=== PATIENT | female | born 1945 | race Caucasian/White ===

== ENCOUNTER 2020-07-23 07:37 | Outpatient (CLI) | payer MEDICARE | END 2020-07-23 07:38 | disposition home or self-care (01) | LOC: CSHCT 07:37 | PROVIDERS: ATTEND Psychiatry & Neurology Neurology | DX: R42 Dizziness and giddiness (principal) | CPT/HCPCS: 70470; 82565 ==

== ENCOUNTER 2021-02-14 17:57 | Inpatient (IN) | payer MEDICARE ==
[2021-02-14 18:40] LABS: #Eosinphils 0.1 10x3/uL (0.0-0.5); #Monocytes 0.8 10x3/uL (0.0-1.1); #Neutrophils 5.9 10x3/uL (1.5-8.4); %Basophils 0.3 % (0.0-2.0); %Eosinophils 1.2 % (0.0-6.0); %Monocytes 10.6 % (0.0-10.0); %Neutrophils 75.9 % (40.0-75.0); Hemoglobin 12.2 g/dL (12.0-15.5); Mean Corpuscular HGB CONC 35.3 g/dL (32.0-36.0); Mean Corpuscular Hemoglobin 33.2 pg (27.0-33.0); Mean Corpuscular Volume 94.3 fl (81.6-98.3); Platelet Count 157 10x3/uL (150-450); RBC Distribution Width 15.9 % (11.5-14.5); Red Blood Cell (RBC) Count 3.67 10x6/uL (3.90-5.03); White Blood Cell (WBC) Count 7.8 10x3/uL (3.5-10.5)
[2021-02-14 18:47] LABS: Calcium 9.2 mg/dL (7.8-10.44); Chloride 88 mmol/L (98-107); Potassium 6.2 mmol/L (3.5-5.1)
[2021-02-14 19:04] LABS: ALT (SGPT) 32 U/L (8-55); AST (SGOT) 37 U/L (5-34); Albumin 4.4 g/dL (3.4-4.8); Alkaline Phosphatase 51 U/L (40-110); Anion Gap 16 mmol/L (10-20); BUN (Urea Nitrogen) 17 mg/dL (9.8-20.1); Bilirubin, Total 1.2 mg/dL (0.2-1.2); Calc. Creatinine Clearance 0 mL/min (70-130); Carbon Dioxide 17 mmol/L (23-31); Globulin 2.7 g/dL (2.4-3.5); Glucose 115 mg/dL (83-110); Protein, Total 7.1 g/dL (5.8-8.1)
[2021-02-14 19:09] LABS: Sodium 115 mmol/L (136-145)
[2021-02-14] MEDS ORDERED: Calcium Chloride 1 GM/10 ML Abboject SYRINGE ONE (19:23)
[2021-02-14] MEDS ORDERED: Insulin Regular 300 UNITS/3 ML VIAL ONE (19:24)
[2021-02-14] MEDS ORDERED: Dextrose 50% Abboject 50 ML SYRINGE ONE (19:24)
[2021-02-14] MEDS ORDERED: Sodium Chloride 3% 100 ML IVPB SCH (20:00)
[2021-02-14 21:32] LABS: SARS-CoV-2 NAA Rapid Test Not Detected (NotDetected)
[2021-02-14] MEDS: Sodium Bicarbonate Tab 325 MG TAB PO SCH (23:22)
[2021-02-15 01:52] LABS: Anion Gap 13 mmol/L (10-20); BUN (Urea Nitrogen) 15 mg/dL (9.8-20.1); Calc. Creatinine Clearance 44 mL/min (70-130); Calcium 9.6 mg/dL (7.8-10.44); Carbon Dioxide 19 mmol/L (23-31); Chloride 89 mmol/L (98-107); Glucose 126 mg/dL (83-110); Potassium 5.1 mmol/L (3.5-5.1)
[2021-02-15 02:07] LABS: Sodium 116 mmol/L (136-145)
[2021-02-15] MEDS ORDERED: Sodium Chloride 3% 100 ML IVPB SCH ×2 (02:30→19:45)
[2021-02-15 04:18] LABS: #Eosinphils 0.1 10x3/uL (0.0-0.5); #Neutrophils 7.5 10x3/uL (1.5-8.4); %Basophils 0.1 % (0.0-2.0); %Eosinophils 0.8 % (0.0-6.0); %Lymphocytes 7.4 % (18.0-47.0); %Monocytes 10.4 % (0.0-10.0); %Neutrophils 79.4 % (40.0-75.0); Hemoglobin 11.5 g/dL (12.0-15.5); Mean Corpuscular HGB CONC 36.1 g/dL (32.0-36.0); Mean Corpuscular Hemoglobin 33.4 pg (27.0-33.0); Mean Corpuscular Volume 92.7 fl (81.6-98.3); Mean Platelet Volume 8.8 fl (7.4-10.4); Platelet Count 143 10x3/uL (150-450); RBC Distribution Width 15.9 % (11.5-14.5); Red Blood Cell (RBC) Count 3.44 10x6/uL (3.90-5.03); White Blood Cell (WBC) Count 9.5 10x3/uL (3.5-10.5)
[2021-02-15 04:25] LABS: Anion Gap 12 mmol/L (10-20); Calc. Creatinine Clearance 46 mL/min (70-130); Carbon Dioxide 19 mmol/L (23-31); Chloride 93 mmol/L (98-107); Glucose 119 mg/dL (83-110); Potassium 5.2 mmol/L (3.5-5.1); Sodium 120 mmol/L (136-145)
[2021-02-15 04:38] LABS: BUN (Urea Nitrogen) 15 mg/dL (9.8-20.1); Magnesium 1.8 mg/dL (1.6-2.6)
[2021-02-15] MEDS ORDERED: Sodium Chloride 3% 100 ML IVPB ONE (04:45)
[2021-02-15] MEDS: Acetaminophen/Codeine 30-300mg Tablet PO SCH ×4 (06:36→18:24)
[2021-02-15] MEDS ORDERED: FLU VACC QS2021-22(65YR UP)/PF 240 MCG/0.7 ML SYRINGE IM ONE (09:00)
[2021-02-15 09:06] LABS: Anion Gap 16 mmol/L (10-20); BUN (Urea Nitrogen) 13 mg/dL (9.8-20.1); Calc. Creatinine Clearance 52 mL/min (70-130); Calcium 8.8 mg/dL (7.8-10.44); Carbon Dioxide 16 mmol/L (23-31); Chloride 94 mmol/L (98-107); Glucose 102 mg/dL (83-110); Potassium 5.3 mmol/L (3.5-5.1); Sodium 121 mmol/L (136-145)
[2021-02-15] MEDS: Apixaban 5 MG TAB PO SCH ×2 (09:19→21:52)
[2021-02-15] MEDS: Azelastine 137 MCG/Spray 30 ML NS SCH ×2 (09:19→21:53)
[2021-02-15] MEDS: Amiodarone 200 MG TAB PO SCH ×4 (09:19→21:52)
[2021-02-15] MEDS: Ascorbic Acid 500 mg Chewable Tablet PO SCH ×2 (09:19→21:52)
[2021-02-15] MEDS: Loratadine 10 MG TAB PO SCH (09:20)
[2021-02-15] MEDS: Fish Oil 1,000 MG CAP PO SCH ×3 (09:20→21:53)
[2021-02-15] MEDS: Sodium Bicarbonate Tab 325 MG TAB PO SCH ×3 (09:21→21:54)
[2021-02-15] MEDS: Magnesium Oxide 400 MG TAB PO SCH (09:22)
[2021-02-15] MEDS: LOKELMA 10 GM PACKET PO SCH ×2 (11:52→17:22)
[2021-02-15 13:50] LABS: Albumin 3.9 g/dL (3.4-4.8); Anion Gap 13 mmol/L (10-20); BUN (Urea Nitrogen) 15 mg/dL (9.8-20.1); Calc. Creatinine Clearance 43 mL/min (70-130); Calcium 8.7 mg/dL (7.8-10.44); Carbon Dioxide 21 mmol/L (23-31); Chloride 89 mmol/L (98-107); Glucose 124 mg/dL (83-110); Phosphorus 3.9 mg/dL (2.3-4.7); Potassium 4.9 mmol/L (3.5-5.1)
[2021-02-15 13:53] LABS: Sodium 118 mmol/L (136-145)
[2021-02-15] MEDS ORDERED: Sodium Chloride 1 GM TAB PO SCH (19:15)
[2021-02-15] MEDS: LACTINEX 1 TAB PO SCH (21:52)
[2021-02-15] MEDS: Sodium Chloride 1 GM TAB PO SCH (21:54)
[2021-02-15] MEDS: Polyethylene Glycol 3350 17 GM Packet PO PRN (21:55)
[2021-02-15 22:29] LABS: Anion Gap 13 mmol/L (10-20); BUN (Urea Nitrogen) 15 mg/dL (9.8-20.1); Calc. Creatinine Clearance 47 mL/min (70-130); Calcium 8.5 mg/dL (7.8-10.44); Carbon Dioxide 21 mmol/L (23-31); Chloride 93 mmol/L (98-107); Glucose 101 mg/dL (83-110); Potassium 4.8 mmol/L (3.5-5.1); Sodium 122 mmol/L (136-145)
[2021-02-16 04:30] LABS: Anion Gap 14 mmol/L (10-20); BUN (Urea Nitrogen) 14 mg/dL (9.8-20.1); Calc. Creatinine Clearance 53 mL/min (70-130); Calcium 8.3 mg/dL (7.8-10.44); Carbon Dioxide 20 mmol/L (23-31); Chloride 93 mmol/L (98-107); Glucose 93 mg/dL (83-110); Potassium 4.7 mmol/L (3.5-5.1); Sodium 122 mmol/L (136-145)
[2021-02-16] MEDS: Apixaban 5 MG TAB PO SCH ×2 (08:21→22:17)
[2021-02-16] MEDS: Loratadine 10 MG TAB PO SCH (08:21)
[2021-02-16] MEDS: Polyethylene Glycol 3350 17 GM Packet PO PRN (08:21)
[2021-02-16] MEDS: Magnesium Oxide 400 MG TAB PO SCH (08:22)
[2021-02-16] MEDS: Sodium Bicarbonate Tab 325 MG TAB PO SCH ×3 (08:22→22:17)
[2021-02-16] MEDS: Amiodarone 200 MG TAB PO SCH ×2 (08:22→22:16)
[2021-02-16] MEDS: Ascorbic Acid 500 mg Chewable Tablet PO SCH ×2 (08:23→22:17)
[2021-02-16] MEDS: Fish Oil 1,000 MG CAP PO SCH ×2 (08:32→22:17)
[2021-02-16] MEDS: Sodium Chloride 1 GM TAB PO SCH ×3 (08:48→22:17)
[2021-02-16] MEDS: LACTINEX 1 TAB PO SCH ×2 (08:48→22:16)
[2021-02-16] MEDS: Azelastine 137 MCG/Spray 30 ML NS SCH ×2 (08:49→22:18)
[2021-02-16 11:23] LABS: Anion Gap 15 mmol/L (10-20); BUN (Urea Nitrogen) 16 mg/dL (9.8-20.1); Calc. Creatinine Clearance 46 mL/min (70-130); Calcium 7.9 mg/dL (7.8-10.44); Carbon Dioxide 19 mmol/L (23-31); Chloride 92 mmol/L (98-107); Glucose 154 mg/dL (83-110); Potassium 4.4 mmol/L (3.5-5.1); Sodium 122 mmol/L (136-145)
[2021-02-16] MEDS: Acetaminophen/Codeine 30-300mg Tablet PO SCH ×3 (11:50→14:37)
[2021-02-16 20:52] LABS: Anion Gap 12 mmol/L (10-20); BUN (Urea Nitrogen) 16 mg/dL (9.8-20.1); Calc. Creatinine Clearance 46 mL/min (70-130); Carbon Dioxide 21 mmol/L (23-31); Chloride 93 mmol/L (98-107); Glucose 118 mg/dL (83-110); Potassium 4.5 mmol/L (3.5-5.1); Sodium 121 mmol/L (136-145)
[2021-02-17 06:28] LABS: Anion Gap 13 mmol/L (10-20); BUN (Urea Nitrogen) 15 mg/dL (9.8-20.1); Calc. Creatinine Clearance 51 mL/min (70-130); Calcium 7.7 mg/dL (7.8-10.44); Carbon Dioxide 22 mmol/L (23-31); Chloride 94 mmol/L (98-107); Glucose 96 mg/dL (83-110); Potassium 4.6 mmol/L (3.5-5.1); Sodium 124 mmol/L (136-145)
[2021-02-17] MEDS: Loratadine 10 MG TAB PO SCH (09:18)
[2021-02-17] MEDS: Magnesium Oxide 400 MG TAB PO SCH (09:18)
[2021-02-17] MEDS: Fish Oil 1,000 MG CAP PO SCH ×2 (09:18→20:43)
[2021-02-17] MEDS: Ascorbic Acid 500 mg Chewable Tablet PO SCH ×2 (09:18→20:43)
[2021-02-17] MEDS: Apixaban 5 MG TAB PO SCH ×2 (09:19→20:43)
[2021-02-17] MEDS: Sodium Bicarbonate Tab 325 MG TAB PO SCH ×3 (09:19→20:44)
[2021-02-17] MEDS: Amiodarone 200 MG TAB PO SCH ×2 (09:19→20:43)
[2021-02-17] MEDS: LACTINEX 1 TAB PO SCH ×2 (09:21→20:43)
[2021-02-17] MEDS: Sodium Chloride 1 GM TAB PO SCH ×3 (09:21→20:44)
[2021-02-17] MEDS: Azelastine 137 MCG/Spray 30 ML NS SCH ×2 (09:26→20:43)
[2021-02-17] MEDS: Acetaminophen/Codeine 30-300mg Tablet PO PRN (20:44)
[2021-02-18 08:44] LABS: Anion Gap 14 mmol/L (10-20); BUN (Urea Nitrogen) 11 mg/dL (9.8-20.1); Calc. Creatinine Clearance 58 mL/min (70-130); Calcium 7.8 mg/dL (7.8-10.44); Carbon Dioxide 19 mmol/L (23-31); Chloride 96 mmol/L (98-107); Glucose 90 mg/dL (83-110); Potassium 4.6 mmol/L (3.5-5.1); Sodium 124 mmol/L (136-145)
[2021-02-18] MEDS: Apixaban 5 MG TAB PO SCH ×2 (08:53→20:25)
[2021-02-18] MEDS: Fish Oil 1,000 MG CAP PO SCH ×2 (08:53→20:25)
[2021-02-18] MEDS: Ascorbic Acid 500 mg Chewable Tablet PO SCH ×2 (08:53→20:25)
[2021-02-18] MEDS: LACTINEX 1 TAB PO SCH ×2 (08:53→20:35)
[2021-02-18] MEDS: Amiodarone 200 MG TAB PO SCH ×2 (08:53→20:25)
[2021-02-18] MEDS: Magnesium Oxide 400 MG TAB PO SCH (08:54)
[2021-02-18] MEDS: Loratadine 10 MG TAB PO SCH (08:54)
[2021-02-18] MEDS: Sodium Chloride 1 GM TAB PO SCH ×3 (08:54→20:26)
[2021-02-18] MEDS: Sodium Bicarbonate Tab 325 MG TAB PO SCH ×3 (08:54→20:26)
[2021-02-18] MEDS: Azelastine 137 MCG/Spray 30 ML NS SCH ×2 (09:07→20:30)
[2021-02-19 04:39] LABS: Albumin 3.5 g/dL (3.4-4.8); Anion Gap 13 mmol/L (10-20); BUN (Urea Nitrogen) 13 mg/dL (9.8-20.1); BUN/Creatinine Ratio 11.93; Calc. Creatinine Clearance 50 mL/min (70-130); Calcium 8.1 mg/dL (7.8-10.44); Carbon Dioxide 20 mmol/L (23-31); Chloride 98 mmol/L (98-107); Glucose 119 mg/dL (83-110); Phosphorus 2.4 mg/dL (2.3-4.7); Potassium 4.3 mmol/L (3.5-5.1); Sodium 127 mmol/L (136-145)
[2021-02-19] MEDS: Sodium Bicarbonate Tab 325 MG TAB PO SCH ×3 (09:26→21:05)
[2021-02-19] MEDS: Sodium Chloride 1 GM TAB PO SCH ×3 (09:26→21:06)
[2021-02-19] MEDS: predniSONE 20 MG TAB PO SCH (09:26)
[2021-02-19] MEDS: Magnesium Oxide 400 MG TAB PO SCH ×2 (09:26→21:05)
[2021-02-19] MEDS: Azelastine 137 MCG/Spray 30 ML NS SCH ×2 (09:26→21:08)
[2021-02-19] MEDS: Ascorbic Acid 500 mg Chewable Tablet PO SCH ×2 (09:26→21:06)
[2021-02-19] MEDS: Fish Oil 1,000 MG CAP PO SCH ×2 (09:26→21:05)
[2021-02-19] MEDS: LACTINEX 1 TAB PO SCH ×2 (09:26→21:06)
[2021-02-19] MEDS: Loratadine 10 MG TAB PO SCH (09:26)
[2021-02-19] MEDS: Apixaban 5 MG TAB PO SCH ×2 (09:26→21:06)
[2021-02-19] MEDS: Amiodarone 200 MG TAB PO SCH ×2 (09:26→21:05)
[2021-02-19 09:40] LABS: Magnesium 1.9 mg/dL (1.6-2.6)
[2021-02-19] MEDS: Acetaminophen/Codeine 30-300mg Tablet PO PRN (19:14)
[2021-02-20 05:35] LABS: Anion Gap 14 mmol/L (10-20); BUN (Urea Nitrogen) 13 mg/dL (9.8-20.1); Calc. Creatinine Clearance 57 mL/min (70-130); Carbon Dioxide 19 mmol/L (23-31); Chloride 101 mmol/L (98-107); Glucose 105 mg/dL (83-110); Phosphorus 2.3 mg/dL (2.3-4.7); Potassium 4.6 mmol/L (3.5-5.1); Sodium 129 mmol/L (136-145)
[2021-02-20 05:37] LABS: Albumin 3.5 g/dL (3.4-4.8); Anion Gap 11 mmol/L (10-20); BUN (Urea Nitrogen) 13 mg/dL (9.8-20.1); BUN/Creatinine Ratio 13.68; Calc. Creatinine Clearance 57 mL/min (70-130); Calcium 8.2 mg/dL (7.8-10.44); Carbon Dioxide 19 mmol/L (23-31); Chloride 101 mmol/L (98-107); Glucose 106 mg/dL (83-110); Magnesium 1.9 mg/dL (1.6-2.6); Phosphorus 2.3 mg/dL (2.3-4.7); Potassium 4.4 mmol/L (3.5-5.1); Sodium 127 mmol/L (136-145)
[2021-02-20] MEDS: Apixaban 5 MG TAB PO SCH ×2 (09:46→21:12)
[2021-02-20] MEDS: Loratadine 10 MG TAB PO SCH (09:46)
[2021-02-20] MEDS: predniSONE 20 MG TAB PO SCH (09:46)
[2021-02-20] MEDS: Sodium Bicarbonate Tab 325 MG TAB PO SCH ×3 (09:46→21:12)
[2021-02-20] MEDS: Amiodarone 200 MG TAB PO SCH ×2 (09:46→21:12)
[2021-02-20] MEDS: Ascorbic Acid 500 mg Chewable Tablet PO SCH ×2 (09:46→21:12)
[2021-02-20] MEDS: Fish Oil 1,000 MG CAP PO SCH ×2 (09:46→21:16)
[2021-02-20] MEDS: Sodium Chloride 1 GM TAB PO SCH ×3 (09:46→21:12)
[2021-02-20] MEDS: LACTINEX 1 TAB PO SCH ×2 (09:46→21:16)
[2021-02-20] MEDS: Magnesium Oxide 400 MG TAB PO SCH ×2 (09:47→21:12)
[2021-02-20] MEDS: Azelastine 137 MCG/Spray 30 ML NS SCH ×2 (09:47→21:19)
[2021-02-20 11:45] LABS: Hemoglobin 10.5 g/dL (12.0-15.5); Mean Corpuscular HGB CONC 34.4 g/dL (32.0-36.0); Mean Corpuscular Hemoglobin 34.4 pg (27.0-33.0); Mean Platelet Volume 9.2 fl (7.4-10.4); Platelet Count 160 10x3/uL (150-450); RBC Distribution Width 16.7 % (11.5-14.5); Red Blood Cell (RBC) Count 3.05 10x6/uL (3.90-5.03); White Blood Cell (WBC) Count 8.9 10x3/uL (3.5-10.5)
[2021-02-20 11:57] LABS: INR-International Normal Ratio 1.1; PTT 27.3 sec (22.0-33.0); Prothrombin Time 12.1 sec (9.5-12.1)
[2021-02-21 05:24] LABS: Albumin 3.4 g/dL (3.4-4.8); Anion Gap 14 mmol/L (10-20); BUN (Urea Nitrogen) 18 mg/dL (9.8-20.1); BUN/Creatinine Ratio 17.65; Calc. Creatinine Clearance 52 mL/min (70-130); Calcium 8.4 mg/dL (7.8-10.44); Carbon Dioxide 21 mmol/L (23-31); Chloride 103 mmol/L (98-107); Glucose 114 mg/dL (83-110); Phosphorus 2.3 mg/dL (2.3-4.7); Potassium 4.8 mmol/L (3.5-5.1); Sodium 133 mmol/L (136-145)
[2021-02-21] MEDS: Amiodarone 200 MG TAB PO SCH ×2 (09:44→21:26)
[2021-02-21] MEDS: Sodium Chloride 1 GM TAB PO SCH ×3 (09:44→21:25)
[2021-02-21] MEDS: Magnesium Oxide 400 MG TAB PO SCH ×2 (09:44→21:26)
[2021-02-21] MEDS: Fish Oil 1,000 MG CAP PO SCH ×2 (09:44→21:26)
[2021-02-21] MEDS: Azelastine 137 MCG/Spray 30 ML NS SCH ×2 (09:44→21:00)
[2021-02-21] MEDS: LACTINEX 1 TAB PO SCH ×2 (09:44→21:26)
[2021-02-21] MEDS: Ascorbic Acid 500 mg Chewable Tablet PO SCH ×2 (09:45→21:26)
[2021-02-21] MEDS: Sodium Bicarbonate Tab 325 MG TAB PO SCH ×3 (09:45→21:25)
[2021-02-21] MEDS: Apixaban 5 MG TAB PO SCH ×2 (09:45→21:26)
[2021-02-21] MEDS: Loratadine 10 MG TAB PO SCH (09:46)
[2021-02-22 04:48] LABS: Albumin 3.5 g/dL (3.4-4.8); Anion Gap 15 mmol/L (10-20); BUN (Urea Nitrogen) 18 mg/dL (9.8-20.1); BUN/Creatinine Ratio 18.37; Calc. Creatinine Clearance 56 mL/min (70-130); Calcium 8.3 mg/dL (7.8-10.44); Carbon Dioxide 20 mmol/L (23-31); Chloride 104 mmol/L (98-107); Glucose 102 mg/dL (83-110); Phosphorus 2.5 mg/dL (2.3-4.7); Potassium 4.4 mmol/L (3.5-5.1); Sodium 135 mmol/L (136-145)
[2021-02-22 09:32] VITALS: BMI 28.3
[2021-02-22] MEDS: Fish Oil 1,000 MG CAP PO SCH (10:10)
[2021-02-22] MEDS: Magnesium Oxide 400 MG TAB PO SCH (10:11)
[2021-02-22] MEDS: LACTINEX 1 TAB PO SCH (10:11)
[2021-02-22] MEDS: Sodium Chloride 1 GM TAB PO SCH ×2 (10:12→15:07)
[2021-02-22] MEDS: Ascorbic Acid 500 mg Chewable Tablet PO SCH (10:12)
[2021-02-22] MEDS: Amiodarone 200 MG TAB PO SCH (10:12)
[2021-02-22] MEDS: Sodium Bicarbonate Tab 325 MG TAB PO SCH ×2 (10:12→15:06)
[2021-02-22] MEDS: Apixaban 5 MG TAB PO SCH (10:12)
[2021-02-22] MEDS: Azelastine 137 MCG/Spray 30 ML NS SCH (10:13)
[2021-02-22] MEDS: Loratadine 10 MG TAB PO SCH (10:13)
[2021-02-22 16:34] VITALS: TEMP 97.8
[2021-02-22 17:09] VITALS: BP 91/56
== END 2021-02-22 17:09 | disposition home health service (06) | DRG 644 ==
LOC: CSHERS 17:57 → CSHICU 17:58 → CSHIMCU 02-15 17:58 → CSHTELE 02-16 12:14
PROVIDERS: ADMIT Family Medicine; ATTEND Internal Medicine
PROC: 05HM33Z Insertion of Infusion Device into Right Internal Jugular Vein, Percutaneous Approach (ICD-10-PCS; principal; 2021-02-15)
PROC: B543ZZA Ultrasonography of Right Jugular Veins, Guidance (ICD-10-PCS; 2021-02-15)
DX: E22.2 Syndrome of inappropriate secretion of antidiuretic hormone (principal); I42.8 Other cardiomyopathies; I47.2 Ventricular tachycardia; E87.2 Acidosis; N17.9 Acute kidney failure, unspecified; I50.22 Chronic systolic (congestive) heart failure; E87.5 Hyperkalemia; Z20.822 Contact with and (suspected) exposure to COVID-19; F41.9 Anxiety disorder, unspecified; K74.60 Unspecified cirrhosis of liver; I49.5 Sick sinus syndrome; I48.91 Unspecified atrial fibrillation; K58.9 Irritable bowel syndrome, unspecified; N18.30 Chronic kidney disease, stage 3 unspecified; R13.10 Dysphagia, unspecified; E11.22 Type 2 diabetes mellitus with diabetic chronic kidney disease; K76.0 Fatty (change of) liver, not elsewhere classified; I49.3 Ventricular premature depolarization; I95.9 Hypotension, unspecified; D86.9 Sarcoidosis, unspecified; R47.1 Dysarthria and anarthria; R27.0 Ataxia, unspecified; Z79.899 Other long term (current) drug therapy; Z88.1 Allergy status to other antibiotic agents; Z88.2 Allergy status to sulfonamides; Z91.013 Allergy to seafood; Z88.8 Allergy status to other drugs, medicaments and biological substances; Z88.7 Allergy status to serum and vaccine; Z95.810 Presence of automatic (implantable) cardiac defibrillator; Z79.01 Long term (current) use of anticoagulants; Z91.012 Allergy to eggs; Z79.891 Long term (current) use of opiate analgesic; Z87.11 Personal history of peptic ulcer disease; Z90.49 Acquired absence of other specified parts of digestive tract; Z90.89 Acquired absence of other organs; Z90.710 Acquired absence of both cervix and uterus
CPT/HCPCS: 36415; 36416; 70450; 71045; 72125; 80048; 80053; 80069; 82105; 82533; 83735; 83880; 83930; 83935; 84100; 84484; 85025; 85027; 85610; 85730; 93005; 93010; 94760; 96365; 96366; 96374; 96375; J1815; J7131; J7512; U0002

== ENCOUNTER 2021-04-07 14:24 | Observation (INO) | payer MEDICARE ==
[2021-04-07 15:48] LABS: #Eosinphils 0.1 10x3/uL (0.0-0.5); #Monocytes 0.5 10x3/uL (0.0-1.1); #Neutrophils 4.5 10x3/uL (1.5-8.4); %Basophils 0.3 % (0.0-2.0); %Eosinophils 1.4 % (0.0-6.0); %Lymphocytes 11.6 % (18.0-47.0); %Monocytes 9.1 % (0.0-10.0); %Neutrophils 76.9 % (40.0-75.0); Hemoglobin 10.7 g/dL (12.0-15.5); Mean Corpuscular HGB CONC 34.4 g/dL (32.0-36.0); Mean Corpuscular Hemoglobin 35.4 pg (27.0-33.0); Mean Platelet Volume 9.4 fl (7.4-10.4); Platelet Count 169 10x3/uL (150-450); RBC Distribution Width 14.2 % (11.5-14.5); Red Blood Cell (RBC) Count 3.02 10x6/uL (3.90-5.03); White Blood Cell (WBC) Count 5.8 10x3/uL (3.5-10.5)
[2021-04-07 16:01] LABS: ALT (SGPT) 29 U/L (8-55); AST (SGOT) 37 U/L (5-34); Albumin 4.3 g/dL (3.4-4.8); Alkaline Phosphatase 51 U/L (40-110); Anion Gap 15 mmol/L (10-20); BUN (Urea Nitrogen) 18 mg/dL (9.8-20.1); Bilirubin, Total 1.7 mg/dL (0.2-1.2); Calc. Creatinine Clearance 0 mL/min (70-130); Calcium 9.7 mg/dL (7.8-10.44); Carbon Dioxide 23 mmol/L (23-31); Chloride 90 mmol/L (98-107); Globulin 2.4 g/dL (2.4-3.5); Glucose 95 mg/dL (83-110); Potassium 4.9 mmol/L (3.5-5.1); Protein, Total 6.7 g/dL (5.8-8.1); Sodium 123 mmol/L (136-145)
[2021-04-07] MEDS ORDERED: Acetaminophen 325 MG TAB PO PRN (18:38)
[2021-04-07 20:04] VITALS: BMI 26.6
[2021-04-07 20:13] LABS: Sodium 123 mmol/L (136-145)
[2021-04-07] MEDS ORDERED: Sodium Chloride 0.45% 1,000 ML IV SCH ×2 (21:00→22:45)
[2021-04-07] MEDS ORDERED: Sodium Chloride 1 GM TAB PO SCH (21:00)
[2021-04-07] MEDS ORDERED: Dextrose 5% in Water 1,000 ML IV PRN (22:04)
[2021-04-07] MEDS ORDERED: Dextrose 50% Abboject 50 ML SYRINGE SLOW IVP PRN (22:04)
[2021-04-07] MEDS ORDERED: HumaLOG 300 UNITS/3 ML VIAL SC PRN (22:04)
[2021-04-07] MEDS ORDERED: Lactated Ringer's 500 ML IV SCH ×2 (22:45→23:15)
[2021-04-08 00:47] LABS: Sodium 123 mmol/L (136-145)
[2021-04-08] MEDS: Acetaminophen/Codeine 30-300mg Tablet PO PRN ×2 (02:57→10:27)
[2021-04-08 05:09] LABS: Bilirubin Neg (Negative); Blood, Urine Negative (Negative); Clarity Clear (Clear); Glucose, Urine (Dipstick) Normal (Negative); Ketone, Urine Negative (Negative); Leukocyte Negative (Negative); Nitrite Negative (Negative); Protein, Urine (Dipstick) Negative (Neg-Trace); Urobilinogen Normal mg/dL (Less than 2)
[2021-04-08 05:17] LABS: Bacteria/HPF None Seen HPF (None Seen); Mucous/LPF None Seen LPF (<2+); RBC/HPF None Seen HPF (0-3); Squamous Epithelial None Seen HPF (0-3); WBC/HPF None Seen HPF (0-3)
[2021-04-08 05:23] LABS: #Eosinphils 0.1 10x3/uL (0.0-0.5); #Monocytes 0.6 10x3/uL (0.0-1.1); #Neutrophils 4.2 10x3/uL (1.5-8.4); %Basophils 0.3 % (0.0-2.0); %Eosinophils 1.2 % (0.0-6.0); %Lymphocytes 15.3 % (18.0-47.0); %Monocytes 10.3 % (0.0-10.0); %Neutrophils 72.4 % (40.0-75.0); Hemoglobin 10.9 g/dL (12.0-15.5); Mean Corpuscular HGB CONC 35.6 g/dL (32.0-36.0); Mean Corpuscular Hemoglobin 35.5 pg (27.0-33.0); Mean Corpuscular Volume 99.7 fl (81.6-98.3); Mean Platelet Volume 9.6 fl (7.4-10.4); Platelet Count 155 10x3/uL (150-450); RBC Distribution Width 13.9 % (11.5-14.5); Red Blood Cell (RBC) Count 3.07 10x6/uL (3.90-5.03); White Blood Cell (WBC) Count 5.7 10x3/uL (3.5-10.5)
[2021-04-08 05:24] LABS: Creatinine, Urine 26.81 mg/dL (47-110)
[2021-04-08 05:32] LABS: Anion Gap 14 mmol/L (10-20); BUN (Urea Nitrogen) 18 mg/dL (9.8-20.1); Calc. Creatinine Clearance 35 mL/min (70-130); Calcium 9.2 mg/dL (7.8-10.44); Carbon Dioxide 22 mmol/L (23-31); Chloride 93 mmol/L (98-107); Glucose 80 mg/dL (83-110); Potassium 4.4 mmol/L (3.5-5.1); Sodium 125 mmol/L (136-145)
[2021-04-08] MEDS ORDERED: Sodium Bicarbonate Tab 325 MG TAB PO SCH (09:00)
[2021-04-08] MEDS ORDERED: Amiodarone 200 MG TAB PO SCH (09:00)
[2021-04-08] MEDS ORDERED: Ascorbic Acid 500 mg Chewable Tablet PO SCH (09:00)
[2021-04-08] MEDS ORDERED: Enoxaparin Sodium 30 MG/0.3 ML SYRINGE SC SCH (09:00)
[2021-04-08] MEDS ORDERED: Sodium Chloride 1 GM TAB PO SCH ×2 (10:30→21:00)
[2021-04-08 10:31] LABS: Potassium, Urine 11.4 mmol/L
[2021-04-08 12:39] VITALS: TEMP 98.6
[2021-04-08 13:26] VITALS: BP 88/57
[2021-04-08 17:14] LABS: SARS-CoV-2 PCR by NAA Not Detected (NotDetected)
== END 2021-04-08 16:20 | disposition home health service (06) ==
LOC: CSHERS 14:24 → CSHTELE 19:21
PROVIDERS: ADMIT Hospitalist; ATTEND Hospitalist
DX: E87.1 Hypo-osmolality and hyponatremia (principal); I48.91 Unspecified atrial fibrillation; I42.8 Other cardiomyopathies; E11.22 Type 2 diabetes mellitus with diabetic chronic kidney disease; N18.30 Chronic kidney disease, stage 3 unspecified; N17.9 Acute kidney failure, unspecified; J44.9 Chronic obstructive pulmonary disease, unspecified; M48.061 Spinal stenosis, lumbar region without neurogenic claudication; R53.1 Weakness; K76.0 Fatty (change of) liver, not elsewhere classified; Z79.899 Other long term (current) drug therapy; Z79.01 Long term (current) use of anticoagulants; Z95.810 Presence of automatic (implantable) cardiac defibrillator; E11.9 Type 2 diabetes mellitus without complications; K74.60 Unspecified cirrhosis of liver; Z20.822 Contact with and (suspected) exposure to COVID-19
CPT/HCPCS: 70450; 72131; 72170; 76700; 80048; 80053; 81001; 82248; 82550; 82570; 82962; 83930; 83935; 84133; 84295 ×2; 84300; 85025 ×2; 96372; 97116; 97139; 99285; G0378 ×2; U0003; U0005; 36415; 36416; J1650; J7120

== ENCOUNTER 2021-04-10 12:45 | Inpatient (IN) | payer MEDICARE ==
[2021-04-10 13:50] LABS: ALT (SGPT) 25 U/L (8-55); AST (SGOT) 39 U/L (5-34); Albumin 4.1 g/dL (3.4-4.8); Alkaline Phosphatase 52 U/L (40-110); Anion Gap 15 mmol/L (10-20); BUN (Urea Nitrogen) 17 mg/dL (9.8-20.1); Bilirubin, Total 1.5 mg/dL (0.2-1.2); Calc. Creatinine Clearance 0 mL/min (70-130); Calcium 9.2 mg/dL (7.8-10.44); Carbon Dioxide 22 mmol/L (23-31); Chloride 88 mmol/L (98-107); Globulin 2.2 g/dL (2.4-3.5); Glucose 105 mg/dL (83-110); Potassium 4.2 mmol/L (3.5-5.1); Protein, Total 6.3 g/dL (5.8-8.1); Sodium 121 mmol/L (136-145)
[2021-04-10 13:59] LABS: #Eosinphils 0.1 10x3/uL (0.0-0.5); #Monocytes 0.8 10x3/uL (0.0-1.1); #Neutrophils 5.1 10x3/uL (1.5-8.4); %Basophils 0.1 % (0.0-2.0); %Eosinophils 0.9 % (0.0-6.0); %Lymphocytes 10.9 % (18.0-47.0); %Monocytes 12.1 % (0.0-10.0); %Neutrophils 75.6 % (40.0-75.0); Hemoglobin 10.5 g/dL (12.0-15.5); Mean Corpuscular HGB CONC 35.4 g/dL (32.0-36.0); Mean Corpuscular Hemoglobin 35.5 pg (27.0-33.0); Mean Corpuscular Volume 100.3 fl (81.6-98.3); Mean Platelet Volume 9.6 fl (7.4-10.4); Platelet Count 146 10x3/uL (150-450); RBC Distribution Width 14.1 % (11.5-14.5); Red Blood Cell (RBC) Count 2.96 10x6/uL (3.90-5.03); White Blood Cell (WBC) Count 6.7 10x3/uL (3.5-10.5)
[2021-04-10] MEDS ORDERED: Electrolyte Replacement Protocol 1 EACH FS SCH (17:45)
[2021-04-10 18:10] LABS: Anion Gap 14 mmol/L (10-20); BUN (Urea Nitrogen) 16 mg/dL (9.8-20.1); Calc. Creatinine Clearance 0 mL/min (70-130); Calcium 9.5 mg/dL (7.8-10.44); Carbon Dioxide 21 mmol/L (23-31); Chloride 91 mmol/L (98-107); Glucose 86 mg/dL (83-110); Magnesium 2.2 mg/dL (1.6-2.6); Potassium 4.3 mmol/L (3.5-5.1); Sodium 122 mmol/L (136-145)
[2021-04-10] MEDS: Doxycycline 100 MG CAP PO SCH (18:36)
[2021-04-10] MEDS ORDERED: Magnesium 2 GM/50 ML 2 GM in Premix Bag 1 BAG IVPB SCH (20:00)
[2021-04-10] MEDS: Acetaminophen 325 MG TAB PO PRN (20:23)
[2021-04-10] MEDS: Apixaban 5 MG TAB PO SCH (20:23)
[2021-04-10] MEDS: Amiodarone 200 MG TAB PO SCH (20:23)
[2021-04-10] MEDS: Sodium Bicarbonate Tab 325 MG TAB PO SCH (20:25)
[2021-04-10] MEDS: Magnesium Oxide 400 MG TAB PO SCH (20:26)
[2021-04-10] MEDS ORDERED: Sodium Chloride 1 GM TAB PO SCH (21:00)
[2021-04-11] MEDS: Doxycycline 100 MG CAP PO SCH ×2 (05:33→17:29)
[2021-04-11 05:49] LABS: #Eosinphils 0.1 10x3/uL (0.0-0.5); #Monocytes 0.5 10x3/uL (0.0-1.1); #Neutrophils 4.2 10x3/uL (1.5-8.4); %Basophils 0.4 % (0.0-2.0); %Eosinophils 1.1 % (0.0-6.0); %Lymphocytes 13.2 % (18.0-47.0); %Monocytes 9.1 % (0.0-10.0); %Neutrophils 75.5 % (40.0-75.0); Anion Gap 14 mmol/L (10-20); BUN (Urea Nitrogen) 15 mg/dL (9.8-20.1); Calc. Creatinine Clearance 34 mL/min (70-130); Calcium 8.8 mg/dL (7.8-10.44); Carbon Dioxide 22 mmol/L (23-31); Chloride 92 mmol/L (98-107); Glucose 95 mg/dL (83-110); Hemoglobin 10.5 g/dL (12.0-15.5); Magnesium 2.5 mg/dL (1.6-2.6); Mean Corpuscular Volume 102.7 fl (81.6-98.3); Mean Platelet Volume 9.4 fl (7.4-10.4); Phosphorus 3.2 mg/dL (2.3-4.7); Platelet Count 160 10x3/uL (150-450); Potassium 4.4 mmol/L (3.5-5.1); RBC Distribution Width 13.9 % (11.5-14.5); Red Blood Cell (RBC) Count 2.92 10x6/uL (3.90-5.03); Sodium 124 mmol/L (136-145); White Blood Cell (WBC) Count 5.5 10x3/uL (3.5-10.5)
[2021-04-11] MEDS: Lidocaine 5% Patch TD SCH (09:09)
[2021-04-11] MEDS: Sodium Bicarbonate Tab 325 MG TAB PO SCH ×2 (09:09→22:28)
[2021-04-11] MEDS: Amiodarone 200 MG TAB PO SCH ×2 (09:09→22:28)
[2021-04-11] MEDS: Apixaban 5 MG TAB PO SCH ×2 (09:09→22:28)
[2021-04-11] MEDS: Acetaminophen 325 MG TAB PO PRN (09:10)
[2021-04-11] MEDS: Sodium Chloride 1 GM TAB PO SCH ×3 (09:19→22:37)
[2021-04-11] MEDS ORDERED: Acetaminophen W/ Codeine 5 ML UDCUP PO PRN (11:57)
[2021-04-11] MEDS ORDERED: Morphine 4 MG/ML VIAL SLOW IVP PRN (11:58)
[2021-04-11] MEDS: Acetaminophen/Codeine 30-300mg Tablet PO PRN ×3 (12:48→22:27)
[2021-04-11 17:40] LABS: SARS-CoV-2 PCR by NAA Not Detected (NotDetected)
[2021-04-11] MEDS: Magnesium Oxide 400 MG TAB PO SCH (22:28)
[2021-04-11] MEDS: Transdermal Patch Removal TOP SCH (22:37)
[2021-04-12] MEDS: Doxycycline 100 MG CAP PO SCH ×2 (06:08→18:41)
[2021-04-12 06:47] LABS: Anion Gap 14 mmol/L (10-20); BUN (Urea Nitrogen) 14 mg/dL (9.8-20.1); Calc. Creatinine Clearance 37 mL/min (70-130); Calcium 8.6 mg/dL (7.8-10.44); Carbon Dioxide 21 mmol/L (23-31); Chloride 94 mmol/L (98-107); Glucose 81 mg/dL (83-110); Magnesium 2.3 mg/dL (1.6-2.6); Phosphorus 2.9 mg/dL (2.3-4.7); Potassium 4.3 mmol/L (3.5-5.1); Sodium 125 mmol/L (136-145)
[2021-04-12 06:50] LABS: #Eosinphils 0.1 10x3/uL (0.0-0.5); #Monocytes 0.5 10x3/uL (0.0-1.1); #Neutrophils 3.5 10x3/uL (1.5-8.4); %Basophils 0.6 % (0.0-2.0); %Eosinophils 1.6 % (0.0-6.0); %Lymphocytes 15.4 % (18.0-47.0); %Monocytes 10.9 % (0.0-10.0); %Neutrophils 70.9 % (40.0-75.0); Hemoglobin 10.6 g/dL (12.0-15.5); Mean Corpuscular Hemoglobin 35.6 pg (27.0-33.0); Mean Corpuscular Volume 101.7 fl (81.6-98.3); Platelet Count 156 10x3/uL (150-450); RBC Distribution Width 14.1 % (11.5-14.5); Red Blood Cell (RBC) Count 2.98 10x6/uL (3.90-5.03); White Blood Cell (WBC) Count 4.9 10x3/uL (3.5-10.5)
[2021-04-12 06:51] LABS: INR-International Normal Ratio 1.2; PTT 34.5 sec (22.0-33.0); Prothrombin Time 13.4 sec (9.5-12.1)
[2021-04-12] MEDS: Baclofen 10 MG TAB PO SCH ×2 (10:00→21:03)
[2021-04-12] MEDS: Amiodarone 200 MG TAB PO SCH ×2 (10:00→21:03)
[2021-04-12] MEDS: Sodium Bicarbonate Tab 325 MG TAB PO SCH ×2 (10:00→21:03)
[2021-04-12] MEDS: Apixaban 5 MG TAB PO SCH ×2 (10:00→21:03)
[2021-04-12] MEDS: Lidocaine 5% Patch TD SCH (10:01)
[2021-04-12] MEDS: Tolvaptan 15 MG TAB PO SCH (10:01)
[2021-04-12 12:39] LABS: Hemoglobin A1c 5.2 % (4.0-6.0)
[2021-04-12] MEDS: Acetaminophen/Codeine 30-300mg Tablet PO PRN (14:21)
[2021-04-12] MEDS: Magnesium Oxide 400 MG TAB PO SCH (21:03)
[2021-04-13] MEDS: Transdermal Patch Removal TOP SCH (00:13)
[2021-04-13] MEDS: Levothyroxine Sodium 112 MCG TAB PO SCH (06:43)
[2021-04-13] MEDS: Baclofen 10 MG TAB PO SCH ×2 (08:58→23:38)
[2021-04-13] MEDS: Amiodarone 200 MG TAB PO SCH ×2 (08:58→23:37)
[2021-04-13] MEDS: Sodium Bicarbonate Tab 325 MG TAB PO SCH ×3 (08:59→23:36)
[2021-04-13] MEDS: Apixaban 5 MG TAB PO SCH ×2 (08:59→23:38)
[2021-04-13] MEDS: Tolvaptan 15 MG TAB PO SCH (09:00)
[2021-04-13] MEDS: Lidocaine 5% Patch TD SCH (09:00)
[2021-04-13 10:26] LABS: #Eosinphils 0.1 10x3/uL (0.0-0.5); #Monocytes 0.6 10x3/uL (0.0-1.1); #Neutrophils 4.7 10x3/uL (1.5-8.4); %Basophils 0.3 % (0.0-2.0); %Eosinophils 0.8 % (0.0-6.0); %Lymphocytes 9.6 % (18.0-47.0); %Monocytes 10.3 % (0.0-10.0); %Neutrophils 78.5 % (40.0-75.0); Mean Corpuscular HGB CONC 34.8 g/dL (32.0-36.0); Mean Corpuscular Hemoglobin 35.6 pg (27.0-33.0); Mean Corpuscular Volume 102.3 fl (81.6-98.3); Mean Platelet Volume 10.1 fl (7.4-10.4); Platelet Count 157 10x3/uL (150-450); RBC Distribution Width 14.2 % (11.5-14.5); Red Blood Cell (RBC) Count 3.09 10x6/uL (3.90-5.03); White Blood Cell (WBC) Count 5.9 10x3/uL (3.5-10.5)
[2021-04-13 10:48] LABS: Anion Gap 13 mmol/L (10-20); BUN (Urea Nitrogen) 12 mg/dL (9.8-20.1); Calc. Creatinine Clearance 38 mL/min (70-130); Calcium 8.5 mg/dL (7.8-10.44); Carbon Dioxide 20 mmol/L (23-31); Chloride 99 mmol/L (98-107); Glucose 160 mg/dL (83-110); Potassium 4.2 mmol/L (3.5-5.1); Sodium 128 mmol/L (136-145)
[2021-04-13 11:03] LABS: Anion Gap 15 mmol/L (10-20); BUN (Urea Nitrogen) 12 mg/dL (9.8-20.1); Calc. Creatinine Clearance 41 mL/min (70-130); Calcium 8.8 mg/dL (7.8-10.44); Carbon Dioxide 22 mmol/L (23-31); Chloride 97 mmol/L (98-107); Glucose 87 mg/dL (83-110); Magnesium 2.4 mg/dL (1.6-2.6); Phosphorus 2.8 mg/dL (2.3-4.7); Potassium 4.4 mmol/L (3.5-5.1); Sodium 130 mmol/L (136-145)
[2021-04-13] MEDS: Acetaminophen/Codeine 30-300mg Tablet PO PRN (12:17)
[2021-04-13] MEDS: Magnesium Oxide 400 MG TAB PO SCH (23:37)
[2021-04-14] MEDS: Transdermal Patch Removal TOP SCH (00:58)
[2021-04-14 04:39] LABS: Anion Gap 13 mmol/L (10-20); BUN (Urea Nitrogen) 12 mg/dL (9.8-20.1); Calc. Creatinine Clearance 40 mL/min (70-130); Calcium 8.6 mg/dL (7.8-10.44); Carbon Dioxide 24 mmol/L (23-31); Chloride 97 mmol/L (98-107); Glucose 89 mg/dL (83-110); Magnesium 2.3 mg/dL (1.6-2.6); Potassium 4.6 mmol/L (3.5-5.1); Sodium 129 mmol/L (136-145)
[2021-04-14 04:41] LABS: #Eosinphils 0.1 10x3/uL (0.0-0.5); #Monocytes 0.8 10x3/uL (0.0-1.1); #Neutrophils 4.9 10x3/uL (1.5-8.4); %Basophils 0.3 % (0.0-2.0); %Eosinophils 1.4 % (0.0-6.0); %Lymphocytes 12.1 % (18.0-47.0); %Monocytes 11.5 % (0.0-10.0); %Neutrophils 73.6 % (40.0-75.0); Hemoglobin 10.5 g/dL (12.0-15.5); Mean Corpuscular HGB CONC 33.9 g/dL (32.0-36.0); Mean Corpuscular Hemoglobin 35.4 pg (27.0-33.0); Mean Corpuscular Volume 104.4 fl (81.6-98.3); Mean Platelet Volume 10.1 fl (7.4-10.4); Platelet Count 146 10x3/uL (150-450); RBC Distribution Width 14.1 % (11.5-14.5); Red Blood Cell (RBC) Count 2.97 10x6/uL (3.90-5.03); White Blood Cell (WBC) Count 6.6 10x3/uL (3.5-10.5)
[2021-04-14 04:57] VITALS: BMI 25.7
[2021-04-14] MEDS: Levothyroxine Sodium 112 MCG TAB PO SCH (06:23)
[2021-04-14] MEDS: Apixaban 5 MG TAB PO SCH (10:02)
[2021-04-14] MEDS: Sodium Bicarbonate Tab 325 MG TAB PO SCH ×2 (10:02→17:29)
[2021-04-14] MEDS: Amiodarone 200 MG TAB PO SCH (10:04)
[2021-04-14] MEDS: Baclofen 10 MG TAB PO SCH (10:04)
[2021-04-14] MEDS: Lidocaine 5% Patch TD SCH (10:06)
[2021-04-14] MEDS: Sodium Chloride 1 GM TAB PO SCH ×2 (10:07→17:29)
[2021-04-14] MEDS: Tolvaptan 15 MG TAB PO SCH (10:10)
[2021-04-14] MEDS: Acetaminophen/Codeine 30-300mg Tablet PO PRN (10:13)
[2021-04-14 16:05] VITALS: BP 93/50; TEMP 98
[2021-04-19 15:15] LABS: EliA Thy New Method **** NEW METHOD ****; Thyroid Peroxidase IgG Ab Less than 4.0 IU/mL (<25 Normal)
== END 2021-04-14 18:30 | DRG 644 ==
LOC: CSHERS 12:45 → CSHTELE 16:36 → UNDOADMOB 16:36 → INTOOBSV 16:36 → OBSVTOIN 16:36 → CSHTELE 04-12 15:13 → OBSVTOIN 04-12 15:13 → UNDODISIN 04-14 18:30
PROVIDERS: ADMIT Family Medicine; ATTEND Family Medicine
PROC: 0CJS8ZZ Inspection of Larynx, Via Natural or Artificial Opening Endoscopic (ICD-10-PCS; principal; 2021-04-14)
DX: E22.2 Syndrome of inappropriate secretion of antidiuretic hormone (principal); E87.2 Acidosis; I42.8 Other cardiomyopathies; R18.8 Other ascites; I50.42 Chronic combined systolic (congestive) and diastolic (congestive) heart failure; N17.9 Acute kidney failure, unspecified; J45.909 Unspecified asthma, uncomplicated; N18.32 Chronic kidney disease, stage 3b; E03.9 Hypothyroidism, unspecified; G47.33 Obstructive sleep apnea (adult) (pediatric); K74.60 Unspecified cirrhosis of liver; M48.062 Spinal stenosis, lumbar region with neurogenic claudication; I11.0 Hypertensive heart disease with heart failure; I95.1 Orthostatic hypotension; Z20.822 Contact with and (suspected) exposure to COVID-19; R49.0 Dysphonia; K76.0 Fatty (change of) liver, not elsewhere classified; R29.6 Repeated falls; E11.22 Type 2 diabetes mellitus with diabetic chronic kidney disease; Z95.810 Presence of automatic (implantable) cardiac defibrillator; Z87.440 Personal history of urinary (tract) infections; Z86.79 Personal history of other diseases of the circulatory system; Z88.1 Allergy status to other antibiotic agents; Z88.8 Allergy status to other drugs, medicaments and biological substances; Z88.2 Allergy status to sulfonamides; Z88.7 Allergy status to serum and vaccine; Z91.012 Allergy to eggs; Z90.49 Acquired absence of other specified parts of digestive tract; Z90.710 Acquired absence of both cervix and uterus; Z90.89 Acquired absence of other organs; Z98.890 Other specified postprocedural states
CPT/HCPCS: 36415; 36416; 70450; 71045; 72125; 72128; 72131; 80048; 80053; 82533; 83036; 83735; 84100; 84436; 84443; 84481; 85025; 85610; 85730; 86376; 93005; 94760; 96374; G0378; J3475; U0003; U0005

== ENCOUNTER 2021-05-05 12:56 | Outpatient (CLI) | payer MEDICARE | END 2021-05-05 12:57 | disposition home or self-care (01) | LOC: CSHRAD 12:56 | PROVIDERS: ATTEND Neurological Surgery | DX: M48.061 Spinal stenosis, lumbar region without neurogenic claudication (principal); M48.00 Spinal stenosis, site unspecified; S22.080D Wedge compression fracture of T11-T12 vertebra, subsequent encounter for fracture with routine healing | CPT/HCPCS: 72110 ==